=== PATIENT | male | born 1960 | race Caucasian/White ===

== ENCOUNTER 2021-02-16 07:20 | Inpatient (IN) | payer OTHER ==
[2021-02-16] MEDS ORDERED: LORazepam 2 MG/ML VIAL IV STA (07:48)
[2021-02-16] MEDS ORDERED: levETIRAcetam INJection 1,000 MG in D5W 100 ML IV ONE (07:50)
[2021-02-16 07:56] LABS: BASO # 0.1 10^3/uL (0.0-0.2); BASO % 1.1 % (0.0-1.0); EOS # 0.1 10^3/uL (0.0-0.5); EOS % 1.5 % (0.0-3.0); HEMATOCRIT 50.3 % (42.0-52.0); HEMOGLOBIN 15.8 g/dl (13.5-17.5); LYMPH # 1.7 10^3/uL (1.5-5.0); LYMPH % 31.8 % (24.0-44.0); MEAN CORPUSCULAR HEMOGLOBIN 28.9 pg (27.0-33.0); MEAN CORPUSCULAR HGB CONC 31.4 g/dl (32.0-36.5); MEAN CORPUSCULAR VOLUME 92.1 fl (80.0-96.0); MONO # 0.3 10^3/uL (0.0-0.8); MONO % 6.1 % (2.0-8.0); NEUTROPHILS # 3.2 10^3/uL (1.5-8.5); NEUTROPHILS % 59.3 % (36.0-66.0); PLATELET COUNT, AUTOMATED 202 10^3/uL (150-450); RED BLOOD COUNT 5.46 10^6/uL (4.30-6.10); WHITE BLOOD COUNT 5.4 10^3/uL (4.0-10.0)
--- OUTSIDE RECORDS SUMMARY | 2021-02-16 08:13 | CCD ---
Author Author [facility] Address Unknown Phone Unavailable Support Name Relationship Address Phone UE Next Of Kin Unknown Unavailable [place] [address] [place] [address] Re-disclosure Warning The records that you are about to access may contain information from federally-assisted alcohol or drug abuse programs. If such information is present, then the following federally mandated warning applies: This information has been disclosed to you from records protected by federal confidentiality rules (42 CFR part 2). The federal rules prohibit you from making any further disclosure of this information unless further disclosure is expressly permitted by the written consent of the person to whom it pertains or as otherwise permitted by 42 CFR part 2. A general authorization for the release of medical or other information is NOT sufficient for this purpose. The Federal rules restrict any use of the information to criminally investigate or prosecute any alcohol or drug abuse patient.The records that you are about to access may contain highly sensitive health information, the redisclosure of which is protected by Article 27-F of the [facility] [place] Public Health law. If you continue you may have access to information: Regarding HIV / AIDS; Provided by facilities licensed or operated by the [facility] [place] Office of Mental Health; or Provided by the [facility] [place] Office for People With Developmental Disabilities. If such information is present, then the following [facility] [place] mandated warning applies: This information has been disclosed to you from confidential records which are protected by state law. State law prohibits you from making any further disclosure of this information without the specific written consent of the person to whom it pertains, or as otherwise permitted by law. Any unauthorized further disclosure in violation of state law may result in a fine or senior living sentence or both. A general authorization for the release of medical or other information is NOT sufficient authorization for further disc losure. Medications No Information Insurance Providers Payer name Policy type / Coverage type Policy ID Covered alliance party ID Covered alliance party's relationship to galloway Policy Galloway Plan Information [facility] [id number] Problems, Conditions, and Diagnoses No Information Surgeries/Procedures No Information Results No Information Social History No Information
--- NOTE | 2021-02-16 08:15 | REP ---
INDICATION: seizure, Hx ICH COMPARISON: None. TECHNIQUE: Axial noncontrast images from the skull base to the vertex with coronal reformations. This CT examination was performed using the following dose reduction techniques: Automated exposure control, adjustment of mA and/or kv according to the patient's size, and use of iterative reconstruction technique. FINDINGS: And cephalo malacia involving primarily the right frontal and right temporal lobes and to a lesser extent the left frontal lobe consistent with prior infarctions. The ventricles, sulci, and cisterns are otherwise normal in position and appearance. Lopes-white differentiation is relatively maintained. No acute intracranial hemorrhage, mass/mass effect, pathology or trauma/injury. No evidence for acute infarction. No extra-axial fluid collection. Calvarium is intact. Paranasal sinuses and mastoid air cells are clear. IMPRESSION: Old areas of infarction. No evidence for acute intracranial pathology or trauma/injury. <Electronically signed by Yared Murray > 02/16/21 0815
[2021-02-16 08:19] LABS: ALBUMIN 4.4 GM/DL (3.2-5.2); BILIRUBIN,DIRECT 0.4 MG/DL (0.0-0.2); BILIRUBIN,TOTAL 2.5 MG/DL (0.2-1.0); CALCIUM LEVEL 9.5 MG/DL (8.5-10.1); CREATININE FOR GFR 1.42 MG/DL (0.70-1.30); GLOMERULAR FILTRATION RATE 54.5 (>56); POTASSIUM SERUM 3.5 MEQ/L (3.5-5.1)
--- NOTE | 2021-02-16 08:21 | REP ---
INDICATION: seizure COMPARISON: None. TECHNIQUE: Portable AP view of the chest FINDINGS: The mediastinum and cardiac silhouette are within normal limits for portable technique. The lung de jesus are clear without acute consolidation, effusion, or pneumothorax. Skeletal structures are intact. IMPRESSION: No acute cardiopulmonary process appreciated. <Electronically signed by Yared Murray > 02/16/21 0883
[2021-02-16] MEDS ORDERED: NS 1,000 ML IV ONE (08:35)
[2021-02-16] MEDS ORDERED: MULTIVITAMIN -ADULT INJECTION 10 ML, THIAMINE INJection 100 MG, FOLIC ACID 1 MG in NS 1... IV ONE ×2 (08:35→11:00)
[2021-02-16 08:44] LABS: INR 1.09; PROTHROMBIN TIME 14.5 SECONDS (12.7-14.5)
[2021-02-16] MEDS ORDERED: THIAMINE 100 MG TAB PO SCH (09:00)
[2021-02-16] MEDS ORDERED: FOLIC ACID 1 MG TAB PO SCH (09:00)
[2021-02-16] MEDS ORDERED: MULTIVITAMINS/MINERALS THERAP 1 TAB PO SCH (09:00)
[2021-02-16 09:10] LABS: RSV AMPLIFICATION NEGATIVE (NEGATIVE)
[2021-02-16] MEDS ORDERED: MOM 30ML SUSPENSION UDC PO PRN (09:30)
[2021-02-16] MEDS ORDERED: MAALOX 30 ML SUSP *UDC PO PRN (09:30)
[2021-02-16] MEDS ORDERED: ACETAMINOPHEN TAB 650MG DOSE (2X325MG) PO PRN (09:30)
[2021-02-16] MEDS ORDERED: LORazepam 2 MG TAB PO PRN (09:30)
--- OUTSIDE RECORDS SUMMARY | 2021-02-16 09:38 | CCD ---
Author Author [facility] Address Unknown Phone Unavailable Support Name Relationship Address Phone UE Next Of Kin Unknown Unavailable [place] [address] [place] [address] Re-disclosure Warning The records that you are [...] is protected by Article 27-F of the [facility] Public Health law. If you continue you may have access to information: Regarding HIV / AIDS; Provided by facilities licensed or operated by the [facility] Office of Mental Health; or Provided by the [facility] Office for People With Developmental Disabilities. If such information is present, then the following [facility] mandated warning applies: This information has been [...] may result in a fine or senior care sentence or both. A general authorization for the release of medical or other information is NOT sufficient authorization for further disc losure. Medications No Information Insurance Providers Payer name Policy type / Coverage type Policy ID Covered libertarian ID Covered libertarian's relationship to galloway Policy Galloway Plan Information [facility] [id number] Problems, Conditions, and Diagnoses No Information Surgeries/Procedures No Information Results No Information Social History No Information
[2021-02-16] MEDS ORDERED: NS 1,000 ML IV SCH (10:00)
[2021-02-16 10:04] LABS: ETHYL ALCOHOL (ETHANOL) 0.004 % (0.000-0.010)
[2021-02-16] MEDS ORDERED: HOME MED LIST COMPLETE! XX SCH (10:40)
--- NOTE | 2021-02-16 13:46 | HPEPDOC ---
[facility] Medical History & Physical Date of Admission Feb 16, 2021 Date of Service: Feb 16, 2021 Attending Physician: BHAVIN VELÁZQUEZ DO History and Physical CHIEF COMPLAINT: Seizure HISTORY OF PRESENT ILLNESS: Patient is a 60-year-old male who presented to the emergency department via EMS from the [facility] after having a seizure. Patient is obtunded and post ictal at the time of my interview so all information was gathered from the patient's daughter, bystanders and the emergency room provider. Patient was apparently sitting at breakfast around 7 AM when he became unresponsive and began foaming at the mouth according to the worker at the [facility] that he spoke with. Patient was placed in the position and EMS was called. Patient apparently had a seizure while sitti ng at breakfast. Patient was brought to the emergency department where he also had a seizure in the CT scanner. Patient did receive Ativan to break the seizure. Patient was still postictal upon my evaluation. Patient had been hospitalized at [facility] from September 2019 until April 2020. 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 Patient apparently walked out of the senior living in August 2020 and has apparently been living in the [facility] in [place], [place] since then. Patient apparently checked into the [facility] on February 14, 2021. 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 PAST MEDICAL HISTORY: 1. Alcoholic dependence. 2. Alcoholic liver disease. 3. History of alcohol withdrawal with delirium and seizures. 4. 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 Carpal tunnel release surgery bilaterally. SOCIAL HISTORY: Patient unable to answer social history questions however, in chart review the patient denies smoking cigarettes or using illicit drug use. And patient has been known to drink regularly in the past. FAMILY HISTORY: Patient unable to answer but in reviewing the patient's chart there is no family history that is known at this time. ALLERGIES: Please see below. REVIEW OF SYSTEMS: Unable to be obtained secondary to the patient's postictal state. HOME MEDICATIONS: Please see below. PHYSICAL EXAMINATION: VITAL SIGNS: Temperature 98.8, pulse 95, respiratory rate 16, blood pressure 125/85, pulse oximetry 97% on room air. General: Alert but not oriented male patient who was laying in bed staring blankly when I was in the room. Patient was able to maintain his airway and was breathing normally. Patient did not appear to be in any acute distress. HEENT: Normocephalic, atraumatic, moist mucous membranes. Neck: No lymphadenopathy or thyromegaly Cardiac: Tachycardic rate with a regular rhythm, no murmurs, normal S1, normal S2 Pulm: Clear to auscultation bilaterally. No wheezes, rhonchi, rales Abd: Nondistended, nontender to palpation, normal bowel sounds Ext: No edema bilateral lower extremities Neuro: Patient was in a postictal state and was unable to follow commands. Skin: Skin of the head, neck, upper and lower extremities was examined did not show any evidence of rash or wounds. LABORATORY DATA: See below. IMAGING: Chest x-ray performed on February 16, 2021 was reported to show no acute cardiopulmonary process appreciated. CT of the head without contrast performed on February 16, 2021 was reported to show old areas of infarction. No evidence for acute intracranial pathology or trauma/injury. MICROBIOLOGY: Please see below. ASSESSMENT: 60-year-old male presented to the hospital initially as a Zane Carranza who was discovered to be the patient after waking up and able to state his name in the emergency room. Patient was found to have a seizure both in the community as well as in the CT scanner in the emergency department.. . PLAN: 1. Seizures. This is most likely secondary to alcohol withdrawal. Patient has a known history of heavy alcohol use and had recently been sent to a senior living after being placed under guardianship of his daughters. Patient apparently left the senior living in August 2020 and presented back to the [facility] and living in a hotel or since. Patient had been staying the days in but mostly recently transition to the [facility] where he had a seizure. We will continue the patient on CIWA protocol with Ativan as needed. Patient has been placed on seizure precautions. 2. Alcohol withdrawal. Patient will be on the CIWA protocol. Multivitamin, thiamine and folic acid will also be given. Patient will be given a sitter at this time. 3. Confusion. This is most likely secondary to a postictal state/Ativan. We'll continue to monitor. 4. Tachycardia. Patient has sinus tachycardia up to 130. Patient is most likely alcohol withdrawal. We'll continue IV hydration until patient wakes up and is able to tolerate p.o. intake. DVT prophylaxis: Mechanical CODE STATUS: Full code Physician: Patient be admitted to the progressive care unit. I do expect the patient to be discharged after greater than equal to 2 midnight stay. Vital Signs Vital Signs Date Time Temp Pulse Resp B/P (MAP) Pulse Ox O2 Delivery O2 Flow Rate FiO2 02/16/21 10:20 95 16 97 Room Air 02/16/21 10:15 125/85 (98) 02/16/21 07:32 98.8 Laboratory Data Labs 24H Laboratory Tests 2 02/16/21 07:44: Immature Granulocyte % (Auto) 0.2, Neutrophils (%) (Auto) 59.3, Lymphocytes (%) (Auto) 31.8, Monocytes (%) (Auto) 6.1, Eosinophils (%) (Auto) 1.5, Basophils (%) (Auto) 1.1H, Neutrophils # (Auto) 3.2, Lymphocytes # (Auto) 1.7, Monocytes # (Auto) 0.3, Eosinophils # (Auto) 0.1, Basophils # (Auto) 0.1, Nucleated Red Blood Cells % (auto) 0.0, Anion Gap 20H, Glomerular Filtration Rate 54.5L, Calcium Level 9.5, Total Bilirubin 2.5H, Direct Bilirubin 0.4H, Aspartate Amino Transf (AST/SGOT) 17, Alanine Aminotransferase (ALT/SGPT) 19, Alkaline Phosphatase 124H, Total Protein 8.0, Albumin 4.4, Albumin/Globulin Ratio 1.2, Ethyl Alcohol Level 0.004 02/16/21 08:12: POC Troponin I (Misc) 0.01 02/16/21 08:13: Prothrombin Time 14.5H, Prothromb Time International Ratio 1.09, Coronavirus (COVID-19)(PCR) NEGATIVE, Influenza Type A (RT-PCR) NEGATIVE, Influenza Type B (RT-PCR) NEGATIVE, Respiratory Syncytial Virus (PCR) NEGATIVE CBC/BMP Laboratory Tests 02/16/21 07:44 Home Medications No Active Prescriptions or Reported Meds Allergies Coded Allergies: ceftriaxone (Unverified Allergy, Unknown, 02/16/21) A-FIB/CHADSVASC A-FIB History Current/History of A-Fib/PAF?: No BHAVIN VELÁZQUEZ DO Feb 16, 2021 13:46
[2021-02-16 15:15] VITALS: BP 145/83
--- NOTE | 2021-02-16 16:59 | ECGEPIP ---
[facility] - ED Test Date: 2021-02-16 Pat Name: RONAL DE LEON Department: Room: - Gender: Male Label Drier: DARREN : 1960 Requested By: Rex Veronica Order Number: [id number] Reading MD: Carol Mallory Measurements Intervals [place] Rate: 127 P: 71 DC: 164 QRS: 51 QRSD: 110 T: 18 QT: 312 QTc: 453 Interpretive Statements Sinus tachycardia Possible Left atrial enlargement Minimal voltage criteria for LVH, may be normal variant ( [place] product ) Nonspecific ST and T wave abnormality ivcd no prior Electronically Signed on 02-16-2021 16:59:31 EST by Carol Mallory
[2021-02-16] MEDS ORDERED: THIA100TA PO (17:38)
[2021-02-16] MEDS ORDERED: FOLI1TAB11 PO (17:38)
[2021-02-16] MEDS ORDERED: VITMTA PO (17:38)
--- NOTE | 2021-02-16 18:12 | DS.PDOC ---
Discharge Summary General Date of Admission Feb 16, 2021 at 09:28 Date of Discharge 02/16/2021 Attending Physician: BHAVIN VELÁZQUEZ DO Discharge Summary PROCEDURES PERFORMED DURING STAY: None. ADMITTING DIAGNOSES: 1. Seizures. 2. Alcohol withdrawal 3. Confusion 4. Tachycardia DISCHARGE DIAGNOSES: 1. Seizures. 2. Alcohol withdrawal 3. Confusion, resolved 4. Tachycardia, resolved COMPLICATIONS/CHIEF COMPLAINT: Alcohol Withdrawal Seizure,Wernicke Encephalopathy. HISTORY OF PRESENT ILLNESS: Patient is a 60-year-old male who presented to the emergency department via EMS from the [facility] after having a seizure. Patient is obtunded and post ictal at the time of my interview so all information was gathered from the patient's daughter, bystanders and the emerg ency room provider. Patient was apparently sitting at breakfast around 7 AM when he became unresponsive and began foaming at the mouth according to the worker at the [facility] that he spoke with. Patient was placed in the position and EMS was called. Patient apparently had a seizure while sitting at breakfast. Patient was brought to the emergency department where he also had a seizure in the CT scanner. Patient did receive Ativan to break the seizure. Patient was still postictal upon my evaluation. Patient had been hospitalized at [facility] from September 2019 until April 2020. Patient had guardianship given to his daughters who decided to place patient in a shelter due to alcoholic dementia. Patient apparently walked out of the shelter in August 2020 and has apparently been living in the [facility] in [place], [place] since then. Patient apparently checked into the [facility] on February 14, 2021. 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 HOSPITAL COURSE: Patient became more alert and awake throughout the day. Patient stated that he wanted to leave AGAINST MEDICAL ADVICE to the nursing staff. I went down and spoke with the patient advising the patient that it is an his best interest to stay so that we can monitor him and ensure that he does not have any more seizures or continues to withdraw from alcohol. Patient states that he is feeling better and sees no purpose for him to stay. Because the patient was alert and oriented x3, patient stated he understands the risk and benefits of the decision he is making, the patient was allowed to leave AGAINST MEDICAL ADVICE. Paperwork has been signed and the patient left the hospital on 02/16/2021. DISCHARGE MEDICATIONS: Please see below. ALLERGIES: Please see below. PHYSICAL EXAMINATION ON DISCHARGE: VITAL SIGNS: Please see below. General: Alert and oriented male patient who was sitting up in bed when I walked in. Patient did not appear to be in any acute distress. HEENT: Normocephalic, atraumatic, moist mucous membranes. Neck: No lymphadenopathy or thyromegaly Cardiac: Regular rate and rhythm, no murmurs, normal S1, normal S2 Pulm: Clear to auscultation bilaterally. No wheezes, rhonchi, rales Abd: Nondistended, nontender to palpation, normal bowel sounds Ext: No edema bilateral lower extremities LABORATORY DATA: Please see below. IMAGING: Chest x-ray performed on February 16, 2021 was reported to show no acute cardiopulmonary process appreciated. CT of the head without contrast performed on February 16, 2021 was reported to show old areas of infarction. No evidence for acute intracranial pathology or trauma/injury. PROGNOSIS: Fair ACTIVITY: As tolerated. DIET: Regular DISCHARGE PLAN: Discharge home AGAINST MEDICAL ADVICE DISPOSITION: AGAINST MEDICAL ADVICE DISCHARGE INSTRUCTIONS: 1. Follow-up with primary care provider within 3 to 5 days discharge. 2. Take multivitamin, folic acid, and thiamine as prescribed 3. Return to the emergency department if symptoms worsen ITEMS TO FOLLOWUP ON ON OUTPATIENT: 1. None. DISCHARGE CONDITION: Stable. TIME SPENT ON DISCHARGE: 35 minutes. Vital Signs/I&Os Vital Signs Date Time Temp Pulse Resp B/P (MAP) Pulse Ox O2 Delivery O2 Flow Rate FiO2 02/16/21 15:20 69 16 100 Room Air 02/16/21 15:15 145/83 (103) 02/16/21 07:32 98.8 Laboratory Data Labs 24H Laboratory Tests 2 02/16/21 07:44: Immature Granulocyte % (Auto) 0.2, Neutrophils (%) (Auto) 59.3, Lymphocytes (%) (Auto) 31.8, Monocytes (%) (Auto) 6.1, Eosinophils (%) (Auto) 1.5, Basophils (%) (Auto) 1.1H, Neutrophils # (Auto) 3.2, Lymphocytes # (Auto) 1.7, Monocytes # (Auto) 0.3, Eosinophils # (Auto) 0.1, Basophils # (Auto) 0.1, Nucleated Red Blood Cells % (auto) 0.0, Anion Gap 20H, Glomerular Filtration Rate 54.5L, Calcium Level 9.5, Total Bilirubin 2.5H, Direct Bilirubin 0.4H, Aspartate Amino Transf (AST/SGOT) 17, Alanine Aminotransferase (ALT/SGPT) 19, Alkaline Phosphatase 124H, Total Protein 8.0, Albumin 4.4, Albumin/Globulin Ratio 1.2, Ethyl Alcohol Level 0.004 02/16/21 08:12: POC Troponin I (Misc) 0.01 02/16/21 08:13: Prothrombin Time 14.5H, Prothromb Time International Ratio 1.09, Coronavirus (COVID-19)(PCR) NEGATIVE, Influenza Type A (RT-PCR) NEGATIVE, Influenza Type B (RT-PCR) NEGATIVE, Respiratory Syncytial Virus (PCR) NEGATIVE CBC/BMP Laboratory Tests 02/16/21 07:44 Discharge Medications Scheduled Folic Acid (Folic Acid) 1 Mg Tablet, 1 MG PO DAILY Multivitamins (Thera M Plus Tablet) 1 Each Tablet, 1 TAB PO DAILY Thiamine Hcl (Vitamin B-1) 100 Mg Tablet, 100 MG PO BID Allergies Coded Allergies: ceftriaxone (Unverified Allergy, Unknown, 02/16/21) BHAVIN VELÁZQUEZ DO Feb 16, 2021 18:12
== END 2021-02-16 17:39 | disposition left against medical advice (07) | DRG 101 ==
LOC: EDBD 07:20 → M ED 07:20 → M ED INP 09:28
PROVIDERS: ADMIT Family Medicine; ATTEND Family Medicine
DX: G40.909 Epilepsy, unspecified, not intractable, without status epilepticus (principal); F10.130 Alcohol abuse with withdrawal, uncomplicated; E51.2 Wernicke's encephalopathy; R00.0 Tachycardia, unspecified; Z88.8 Allergy status to other drugs, medicaments and biological substances; Z20.822 Contact with and (suspected) exposure to COVID-19; R41.0 Disorientation, unspecified